=== PATIENT | female | born 1985 | race Caucasian/White ===

== ENCOUNTER 2018-05-25 05:45 | Emergency (ER) | payer OTHER ==
--- NOTE | 2018-05-25 07:22 | RAD ---
INDICATION: Left foot injury COMPARISON: None TECHNIQUE: AP and lateral views were obtained. FINDINGS: There is no acute fracture or dislocation. There is mild lateral soft tissue swelling. IMPRESSION: NO ACUTE FRACTURE.
--- NOTE | 2018-05-25 08:13 | RAD ---
INDICATION: Right foot pain COMPARISON: Right foot since same date TECHNIQUE: An oblique view of the right foot was obtained for complete evaluation. FINDINGS: The additional oblique view does not confirm the presence of fourth metatarsal fracture although the images suggest the possibility of a nondisplaced fracture of the cuboid extending to the metatarsal articulation. CT is a more sensitive means to evaluate for possible midfoot fractures and either short-term follow-up versus CT imaging is recommended depending upon the clinical level of concern. Suggest orthopedic referral as indicated.
--- NOTE | 2018-05-25 09:32 | ED ---
Lower Extremity - HPI Summary HPI Summary: Patient is a 33-year-old female presenting to the ED 1 hour after stepping off of her couch and injuring the left dorsal side of the foot. Endorses swelling and ecchymosis to the area. She is unable to ambulate at this time. Endorses 4/10 pain, constant and throbbing. Symptoms alleviated with elevation and ice, aggravated with bearing weight. Denies any numbness or tingling. - History of Current Complaint Chief Complaint: EDExtremityLower Stated Complaint: LT FOOT PAIN Time Seen by Provider: 05/25/18 06:23 Hx Obtained From: Patient Mechanism Of Injury: Twisted Onset of Pain: Minutes Onset/Duration: Hours Severity Initially: Mild Severity Currently: Mild Pain Intensity: 7 Pain Scale Used: 0-10 Numeric Timing: Constant Location: Is Discrete @ - Left dorsal side of the foot Character Of Pain: Aching Associated Signs And Symptoms: Positive: Swelling, Redness, Bruising Aggravating Factor(s): Standing, Ambulation, Weight Bearing Alleviating Factor(s): Rest, Elevation Able to Bear Weight: No - Risk Factors Gout Risk Factors: Negative DVT Risk Factors: Negative Septic Arthritis Risk Factor: Negative - Allergies/Home Medications Allergies/Adverse Reactions: Allergies Allergy/AdvReac Type Severity Reaction Status Date / Time benzoyl peroxide [From [facility]] Allergy Swelling Verified 05/25/18 05:49 Of Face,Lips,& Throat clindamycin [From [facility]ac] Allergy Swelling Verified 05/25/18 05:49 Of Face,Lips,& Throat Home Medications: Home Medications NK [No Home Medications Reported] 05/25/18 [History Confirmed 05/25/18] PMH/Surg Hx/FS Hx/Imm Hx Previously Healthy: Yes - Immunization History Hx Pertussis Vaccination: No Immunizations Up to Date: Unable to Obtain/Confirm Infectious Disease History: No Infectious Disease History: Denies: Traveled Outside the [place] in Last 30 Days - Social History Occupation: Employed Full-time Lives: With Family Alcohol Use: None Hx Substance Use: No Substance Use Type: Reports: None Hx Tobacco Use: No Smoking Status (MU): Never Smoked Tobacco Review of Systems Negative: Fever, Chills, Skin Diaphoresis Negative: Palpitations, Chest Pain Negative: Shortness Of Breath, Cough Genitourinary: Negative Positive: no symptoms reported, see HPI Positive: Arthralgia - left dorsal side of foot pain Positive: Bruising Neurological: Negative All Other Systems Reviewed And Are Negative: Yes Physical Exam Triage Information Reviewed: Yes Vital Signs On Initial Exam: Initial Vitals Temp Pulse Resp BP Pulse Ox 98.4 F 84 16 121/71 98 05/25/18 05:50 05/25/18 05:50 05/25/18 05:50 05/25/18 05:50 05/25/18 05:50 Vital Signs Reviewed: Yes Appearance: Positive: Well-Appearing, Well-Nourished Skin: Positive: Warm, Skin Color Reflects Adequate Perfusion, Other - bruising and swelling to the left side/ dorsum of the foot Head/Face: Positive: Normal Head/Face Inspection Neck: Positive: Supple, No Lymphadenopathy Respiratory/Lung Sounds: Positive: Clear to Auscultation, Breath Sounds Present Cardiovascular: Positive: RRR, Pulses are Symmetrical in both Upper and Lower Extremities Musculoskeletal: Positive: Normal, Strength/ROM Intact Neurological: Positive: Sensory/Motor Intact, Alert, Oriented to Person Place, Time, Speech Normal Psychiatric: Positive: Normal, Affect/Mood Appropriate Diagnostics - Vital Signs Vital Signs Temp Pulse Resp BP Pulse Ox 05/25/18 05:50 98.4 F 84 16 121/71 98 - Laboratory Lab Statement: Any lab studies that have been ordered have been reviewed, and results considered in the medical decision making process. Lower Extremity Course/Dx - Course Course Of Treatment: During the course of treatment, the patient is evaluated for left-sided dorsal foot pain, swelling, ecchymosis. There is approximately a 3 cm in length and 1 cm height amount of swelling with ecchymosis to the left dorsal side of the foot. Unable to ambulate. Dorsiflexion and plantar flexion with pain, worse with plantar flexion. Obtained a three-view x-ray. Discussed case with Dr. Ariza, radiologist, who is unable to discern if there is a cuboid fracture due to the amount of pain and swelling the patient is currently having. I discussed at length with the patient the option of following up with orthopedics or having a CT at this time. Patient agrees to proceed with CT scan. CT scan shows: IMPRESSION: #. Small nondisplaced intra-articular fractures at the cuboid and lateral cuneiform as. described. #. Overlying soft tissue infiltrative edema/hematoma without evidence for a loculated. hematoma. #. Moon images saved on the [facility] [place] [facility]. Posterior splint, nonweightbearing, crutches given. Will follow-up with orthopedics next week. - Diagnoses Differential Diagnosis/HQI/PQRI: Positive: Fracture (Closed), Fracture (Open), Sprain, Strain Provider Diagnoses: Cuboid fracture Discharge - Sign-Out/Discharge Documenting (check all that apply): Discharge/Admit/Transfer - Discharge Plan Condition: Stable Disposition: HOME Patient Education Materials: Foot Fracture in Adults (ED) Referrals: No Primary Care Phys,NOPCP [Primary Care Provider] - Rafael León MD [Medical Doctor] - Additional Instructions: Tylenol as needed for discomfort Elevate Ice Follow up with ortho next week non weight bearing Crutches given - Billing Disposition and Condition Condition: STABLE Disposition: Home
--- NOTE | 2018-05-25 09:48 | RAD ---
Indication: LEFT foot pain after stepping off a couch. Comparison: May 25, 2018 radiographs. Technique: Noncontrast CT LEFT foot. Multiplanar reformation. Report: Normal articular alignment. Negative for diastases between the medial cuneiform and base of the second metatarsal or intervening bone fragments to raise concern for Lisfranc ligament injury. Nondisplaced intra-articular fracture distal plantar margin of the cuboid bone at the level of the fourth tarsometatarsal articulation. Nondisplaced intra-articular fracture at the dorsal margin of the lateral cuneiform at the third tarsal metatarsal articulation. No additional fractures evident. Infiltrative hematoma/edema over the dorsum of the midfoot. No loculated soft tissue plane hematoma evident. IMPRESSION: #. Small nondisplaced intra-articular fractures at the cuboid and lateral cuneiform as described. #. Overlying soft tissue infiltrative edema/hematoma without evidence for a loculated hematoma. #. Moon images saved on the [facility] [place] PACS.
[2018-05-25 10:28] VITALS: BP 120/80
== END 2018-05-25 10:26 | disposition home or self-care (01) ==
LOC: ED 05:45
DX: S92.212A Displaced fracture of cuboid bone of left foot, initial encounter for closed fracture (principal); X58.XXXA Exposure to other specified factors, initial encounter; Y92.009 Unspecified place in unspecified non-institutional (private) residence as the place of occurrence of the external cause; Z88.1 Allergy status to other antibiotic agents; Z88.8 Allergy status to other drugs, medicaments and biological substances
CPT/HCPCS: 99282